=== PATIENT | male | born 1950 | race American Indian/Alaskan Native ===

== ENCOUNTER 2017-08-30 12:14 | Outpatient (CLI) | payer MEDICARE ==
--- NOTE | 2017-08-30 15:10 | XRay Report ---
XRAY RIGHT HIP TWO VIEWS: 08/30/17 12:14:00 CLINICAL: Pain. FINDINGS: No fracture or dislocation.Moderately severe osteoarthritis with narrowing of the joint space, superior acetabular eburnation and a superolateral osteophyte. Less severe osteoarthritis of the left hip. The pelvic bones are intact. The SI joints are normal. IMPRESSION: Moderately severe osteoarthritis of the right hip and [id number] osteoarthritis of the left hip.
--- NOTE | 2017-08-30 15:39 | XRay Report ---
XRAY LUMBAR SPINE THREE VIEWS: 08/30/17 12:14:00 CLINICAL: Lumbar radiculitis. FINDINGS: Normal vertebral body height, alignment and disk spaces. Small anterior osteophytes at L4-5 and L5-S1. The pedicles are intact. No fracture. Pronounced facet joint sclerosis L3-4 through L5-S1. Normal soft tissues. IMPRESSION: Facet arthropathy L3-L5 S1. L4-5 and L5-S1 degenerative disc disease.
== END 2017-08-30 12:15 | disposition home or self-care (01) ==
LOC: SPVIMAG 12:14
PROVIDERS: ATTEND Internal Medicine
DX: M51.36 Other intervertebral disc degeneration, lumbar region (principal); M54.16 Radiculopathy, lumbar region; M17.0 Bilateral primary osteoarthritis of knee
CPT/HCPCS: 72100

== ENCOUNTER 2021-11-08 07:52 | Day surgery (SDC) | payer MEDICARE ==
[2021-11-02 13:26] LABS: Hematocrit 45.5 % (35.5-45.6); Hemoglobin 14.6 gm/dl (11.8-15.2); Mean Corpuscular HGB Conc 32 % (32-34); Mean Corpuscular Volume 85 fl (84-94); Platelet Count 271 K/mm3 (140-440); Red Blood Count 5.33 M/mm3 (3.65-5.03); Red Cell Distribution Width 14.5 % (13.2-15.2)
[2021-11-02 13:48] LABS: Albumin 4.7 g/dL (3.9-5); Calcium 9.7 mg/dL (8.4-10.2)
[2021-11-08] MEDS ORDERED: LACTATED RINGERS 1,000 ML ONE (09:23)
[2021-11-08] MEDS ORDERED: ceFAZolin/Water 2 GM/20 ML 2 GM/20 ML SYRINGE IV ONE (09:30)
[2021-11-08] MEDS ORDERED: ONDANSETRON 4 MG/2 ML INJ IV PRN (09:30)
[2021-11-08] MEDS ORDERED: HYDROmorphone 1 MG/1 ML INJ IV PRN ×2 (09:30)
[2021-11-08] MEDS ORDERED: ACETAMINOPHEN 500 MG TAB PO NR (09:30)
[2021-11-08] MEDS ORDERED: MAGNESIUM OXIDE 400 MG TAB PO NR (09:30)
--- NOTE | 2021-11-08 09:31 | Anesthesia Day of Surgery ---
Anesthesia Day of Surgery - Day of Surgery Patient Examined: Yes Patient H&P Reviewed: Yes Patient is NPO: Yes
--- NOTE | 2021-11-08 09:32 | Anesthesia Consultation ---
Anesthesia Consult and Med Hx Date of service: 11/08/21 - Airway Anesthetic Teeth Evaluation: Good, Partials ROM Head & Neck: Adequate Mental/Hyoid Distance: Adequate Mallampati Class: Class II Intubation Access Assessment: Good - Pre-Operative Health Status ASA Pre-Surgery Classification: ASA3 Proposed Anesthetic Plan: General - Pulmonary Hx Smoking: Yes (QUIT CIG.30 YRS AGO SMOKES CIGARS 3 X W) Hx Sleep Apnea: Yes (DX SLEEP APNEA) - Cardiovascular System Hx Hypertension: Yes Hx Heart Attack/AMI: No - Central Nervous System Hx Back Pain: Yes (OCC. NECK AND BACK PAIN) Hx Psychiatric Problems: Yes (PTSD/Depression) - Gastrointestinal Hx Gastroesophageal Reflux Disease: Yes - Hematic Hx Anemia: No Hx Sickle Cell Disease: No - Other Systems Hx Alcohol Use: Yes (OCC. ) Hx Substance Use: No Hx Cancer: No Hx Obesity: Yes
[2021-11-08] MEDS ORDERED: LACTATED RINGERS 1,000 ML IV SCH (10:00)
[2021-11-08] MEDS ORDERED: GABAPENTIN 300 MG CAP PO NR (10:00)
[2021-11-08] MEDS ORDERED: MIDAZOLAM 2 MG/2 ML INJ IV NR (10:00)
[2021-11-08] MEDS ORDERED: ceFAZolin/Water 2 GM/20 ML 2 GM/20 ML SYRINGE IV NR (10:00)
[2021-11-08] MEDS ORDERED: CELECOXIB 200 MG CAP PO NR (10:00)
[2021-11-08] MEDS ORDERED: LIDOCAINE MPF (2%) 20 MG/1 ML VIAL 5 ML ONE (10:37)
[2021-11-08] MEDS ORDERED: ONDANSETRON 4 MG/2 ML INJ ONE (10:37)
[2021-11-08] MEDS ORDERED: fentaNYL 100 MCG/2 ML INJ ONE (10:41)
[2021-11-08] MEDS ORDERED: propofoL 200 MG/20 ML VIAL IV ONE (10:41)
[2021-11-08] MEDS ORDERED: BUPIVACAINE/PF (0.25%) 2.5 MG/ML 30 ML VIAL INFILTRATI ONE (10:47)
[2021-11-08] MEDS ORDERED: WATER FOR IRRIG STERILE 2000 ML IR ONE (11:51)
--- NOTE | 2021-11-08 12:05 | Short Stay Summary ---
Short Stay Documentation Date of service: 11/08/21 - History H&P: obtained from office - Allergies and Medications Current Medications: Allergies No Known Allergies Allergy (Verified 09/26/18 15:45) Home Medications Medication Instructions Recorded Confirmed Last Taken Type Acetaminophen [Tylenol Extra 1,000 mg PO PRN PRN 09/26/18 11/01/21 11/07/21 History Strength] Finasteride [Proscar] 5 mg PO QDAY 09/26/18 11/01/21 11/08/21 06:00 History Fluticasone [Flonase] 1 spray NS QDAY 09/26/18 11/01/21 11/07/21 History Ibuprofen [Ibu] 800 mg PO PRN PRN 09/26/18 11/01/21 Unknown History Lisinopril [Zestril] 20 mg PO DAILY 09/26/18 11/01/21 11/07/21 History Meclizine [Antivert] 25 mg PO TID PRN 09/26/18 11/01/21 Unknown History Melatonin [Melatin] 3 mg PO QHS 09/26/18 11/01/21 Unknown History Pantoprazole [Protonix] 40 mg PO QDAY 09/26/18 11/01/21 11/07/21 History Tamsulosin HCl [Flomax] 0.8 mg PO DAILY 09/26/18 11/01/21 11/08/21 06:00 History Venlafaxine [Effexor 37.5mg tab] 2 tab PO QDAY 09/26/18 11/01/21 11/07/21 History amLODIPine [Norvasc] 10 mg PO DAILY 09/26/18 11/01/21 11/08/21 06:00 History hydroCHLOROthiazide [HCTZ] 25 mg PO QDAY 09/26/18 11/01/21 11/07/21 History Bupropion HCl [Forfivo Xl] 450 mg PO QAM 10/29/21 10/29/21 11/07/21 History Memantine [Namenda] 10 mg PO DAILY 10/29/21 10/29/21 11/07/21 History Vitamin B12 1,000 mcg PO DAILY 10/29/21 10/29/21 11/07/21 History Active Medications Hydromorphone HCl (Hydromorphone 1 Mg/1 Ml Inj) 0.25 mg IV Q10MIN PRN PRN Reason: Pain, Moderate (4-6) Stop: 11/08/21 20:00 Hydromorphone HCl (Hydromorphone 1 Mg/1 Ml Inj) 0.5 mg IV Q10MIN PRN PRN Reason: Pain , Severe (7-10) Stop: 11/08/21 20:00 Lactated Ringer's (Lactated Ringers) 1,000 mls @ 125 mls/hr IV DIRECT ERICK Last Admin: 11/08/21 09:30 Dose: 125 mls/hr Midazolam HCl (Midazolam 2 Mg/2 Ml Inj) 2 mg IV PREOP NR Stop: 11/08/21 23:59 Last Admin: 11/08/21 10:08 Dose: 2 mg - Brief post op/procedure progress note Date of procedure: 11/08/21 Pre-op diagnosis: phimosis, hematuria Procedure: cysto, circ Anesthesia: GETA Surgeon: PIPE JENKINS Estimated blood loss: minimal Pathology: list (foreskin) Specimen disposition: to lab Condition: stable - Hospital course Hospital course: bactrim & norco on chart - Disposition Condition at discharge: Stable Disposition: 01 HOME / SELF CARE / HOMELESS Short Stay Discharge Plan Follow up with: RANGEL LOERA MD [Primary Care Provider] - 7 Days
[2021-11-08] MEDS ORDERED: dexAMETHasone 20 MG/5 ML VIAL ONE (12:12)
--- NOTE | 2021-11-08 12:34 | Operative Report ---
DATE OF SURGERY: 11/08/2021 PREOPERATIVE DIAGNOSES: Phimosis, hematuria. POSTOPERATIVE DIAGNOSES: Phimosis, hematuria. PROCEDURES: Circumcision, flexible cystoscopy. SURGEON: Hu August MD ANESTHESIA: General. ESTIMATED BLOOD LOSS: Minimal. FLUIDS: Crystalloid. COMPLICATIONS: No complications. INDICATIONS: This patient is a 71-year-old gentleman known to our service for several years, has gradually developed a phimosis with irritation of the foreskin despite conservative management, also was noted to have some hematuria, presents now for cystoscopy and circumcision. He will get a CT at a later date. Procedure risks, benefits and complications were explained. DESCRIPTION OF PROCEDURE: The patient was taken to the operative suite, placed in a supine position. After adequate general anesthesia, prepped and draped in a sterile fashion. Foreskin was marked at the coronal ridge. Foreskin was circumferentially removed and sent for routine pathologic evaluation. Proximal shaft skin was retracted. Adequate hemostasis was achieved. Proximal and distal shaft skin was reapproximated and closed with 3-0 chromic in an interrupted fashion. Next, using a flexible cystoscope, cystoscopy was performed. No urethral abnormalities. The patient did have some moderate trilobar prostatic obstruction. Bladder, no tumors or stones were noted, mild median lobe. Both ureteral orifices in normal position. Scope was removed. Xeroform gauze, Armen and Coban dressing around the shaft of the penis. The patient was extubated and taken to recovery room. He will take his dressing off tomorrow, go home on Bactrim and [place] and follow up in the office. TID: [id number] RECEIPT: [id number] BRITANY/SASKIA
[2021-11-08 13:28] VITALS: BP 139/76
[2021-11-08] MEDS ORDERED: HYDROcodone/ACETAMINOPHEN 5-325 MG TAB PO PRN (13:52)
--- NOTE | 2021-11-08 18:40 | Post Anesthesia Evaluation ---
- Post Anesthesia Evaluation Patient Participated: Yes Airway Patent: Yes Stable Respiratory Function: Yes Nausea/Vomiting: No Temp > 96.8F: Yes Pain Manageable: Yes Adequeate Hydration: Yes Anesthesia Complications: No Block Receding Appropriately: Not Applicable Patient on Ventilator: No
== END 2021-11-08 14:30 | disposition home or self-care (01) ==
LOC: OR 07:52
PROVIDERS: ATTEND Urology
DX: N47.1 Phimosis (principal); R31.9 Hematuria, unspecified; N42.89 Other specified disorders of prostate; E78.00 Pure hypercholesterolemia, unspecified; I10 Essential (primary) hypertension; F32.9 Major depressive disorder, single episode, unspecified; G47.30 Sleep apnea, unspecified; K21.9 Gastro-esophageal reflux disease without esophagitis; E66.9 Obesity, unspecified; Z98.890 Other specified postprocedural states; Z20.822 Contact with and (suspected) exposure to COVID-19; Z79.899 Other long term (current) drug therapy; Z87.440 Personal history of urinary (tract) infections; Z96.641 Presence of right artificial hip joint; Z87.891 Personal history of nicotine dependence; Z68.33 Body mass index [BMI] 33.0-33.9, adult; Z72.89 Other problems related to lifestyle; Z86.73 Personal history of transient ischemic attack (TIA), and cerebral infarction without residual deficits
CPT/HCPCS: 36415; 52000; 54161; 80053; 85027; 88304; J0690; J1100; J2250; J2405; J2704; J3010; J3490; J7120; U0003